=== PATIENT | female | born 1990 | race African-American/Black ===

== ENCOUNTER 2019-03-29 01:11 | Emergency (ER) | payer OTHER ==
[~2019-03-29] VITALS: Ht 154.9 cm; Wt 62.6 kg
--- NOTE | 2019-03-29 01:23 | NUR ---
ED Nurse Note: pt presents to ED c/o flu-like symptoms. pt reports that she has body aches that she rates 8/10 and a CARPIO as well as rhinorrhea and dry cough. pt denies N/V/D or any difficulty breathing at this time. pt denies taking any meds [employer] and did not get a flu shot this year
[2019-03-29 01:25] VITALS: BP 115/80
[2019-03-29] MEDS ORDERED: GUAIFENESI100 MG/5 M ORAL (01:45)
[2019-03-29] MEDS ORDERED: Dexamethasone 4mg/ml vial IVP ONE (01:45)
--- NOTE | 2019-03-29 01:45 | Emergency Room Report ---
History of Present Illness General Chief Complaint: Flu Like Symptoms Source: Patient Present Illness HPI 29-year-old female presents with cough, congestion, body aches, fever/chills x1 day, her daughter has the same symptoms, patient came into the ED to get checked out, no aggravating relieving factors severity is moderate, constant, no chest pain or shortness of breath no dysuria, no nausea no vomiting, patient presents to the ED Allergies: Coded Allergies: Dust (Verified Allergy, Unknown, 03/29/19) Uncoded Allergies: CATS (Allergy, Unknown, 03/29/19) Patient History Past Medical History: see triage record Last Menstrual Period: 03/13/2019 Reviewed Nursing Documentation: PMH: Agreed; PSxH: Agreed Nursing Documentation-PMH Past Medical History: No Stated History Review of Systems All Other Systems: negative except mentioned in HPI Physical Exam Vital Signs Date Time Temp Pulse Resp B/P (MAP) Pulse Ox O2 Delivery O2 Flow Rate FiO2 03/29/19 01:15 99.9 93 16 115/80 (92) 98 Room Air Sp02 EP Interpretation: reviewed, normal General Appearance: well appearing, no apparent distress, alert Head: normocephalic, atraumatic Eyes: bilateral eye PERRL, bilateral eye EOMI ENT: uvula midline, moist mucus membranes, nasal congestion Neck: supple, thyroid normal, supple/symm/no masses Respiratory: lungs clear, no respiratory distress, no retraction, no accessory muscle use Cardiovascular #1: normal peripheral pulses, regular rate, rhythm, no edema, no gallop, no murmur Gastrointestinal: non tender, soft, no guarding, no rebound Musculoskeletal: normal inspection Neurologic: alert, oriented x3 Psychiatric: mood/affect normal Skin: no rash, warm/dry Medical Decision Making Diagnostic Impression: Primary Impression: Influenza ER Course 29-year-old female presents with most likely influenza versus viral syndrome versus URI Counseled patient symptomatic control disposition home with return precautions follow-up with PCP Last Vital Signs Date Time Temp Pulse Resp B/P (MAP) Pulse Ox O2 Delivery O2 Flow Rate FiO2 03/29/19 01:25 93 16 Room Air 03/29/19 01:25 99.9 115/80 98 Disposition: HOME, SELF-CARE Condition: Stable Scripts Guaifenesin* (GUAIFENESIN*) 100 Mg/5 Ml Liquid 5 ML ORAL Q6H PRN for For Cough, #120 ML 0 Refills Prov: Ritchie Doll MD 03/29/19 Referrals: [facility]. [facility] Patient Instructions: Influenza, Adult, [id number] Additional Instructions: The patient was provided with discharge instructions, notified to follow-up with a primary care doctor and or specialist in the next 24-48 hours, and to return to the ED if they have worsening of their symptoms. Please note that this report is being documented using [employer] technology. This can lead to erroneous entry secondary to incorrect interpretation by the dictating instrument. Ritchie Doll MD Mar 29, 2019 01:45
[2019-03-29 01:55] VITALS: BP 115/80
--- NOTE | 2019-03-29 01:55 | NUR ---
ER DISCHARGE NOTE: Patient cleared for DC by Dr. Doll. Patient verbalized understanding of DC and prescription instructions. all medical devices such as ID band removed. patient AxO x 4, ambulates with steady gait, pt left with all belongings
== END 2019-03-29 01:55 | disposition home or self-care (01) ==
LOC: EMR 01:55
DX: J11.1 Influenza due to unidentified influenza virus with other respiratory manifestations (principal); Z91.09 Other allergy status, other than to drugs and biological substances
CPT/HCPCS: 81025; 96374; J1100; Z7502; 99284